=== PATIENT | female | born 1950 | race Caucasian/White ===

== ENCOUNTER → 2016-12-21 | Outpatient (CLI) | payer MEDICARE, BC, OTHER ==
[2016-12-21 18:11] LABS: ANION GAP 6 MEQ/L (8-16); BLOOD UREA NITROGEN 10 MG/DL (7-18); CALCIUM LEVEL 9.4 MG/DL (8.8-10.2); CARBON DIOXIDE LEVEL 32 MEQ/L (21-32); CHLORIDE LEVEL 99 MEQ/L (98-107); CREATININE FOR GFR 0.65 MG/DL (0.55-1.02); GLOMERULAR FILTRATION RATE > 60.0 (>45); GLUCOSE, FASTING 92 MG/DL (80-110); POTASSIUM SERUM 4.6 MEQ/L (3.5-5.1); SODIUM LEVEL 137 MEQ/L (136-145)
== END ==
LOC: M WUC 13:36
DX: J90 Pleural effusion, not elsewhere classified (principal); R60.9 Edema, unspecified; R06.00 Dyspnea, unspecified; I10 Essential (primary) hypertension

== ENCOUNTER → 2017-02-20 | Outpatient (REF) | payer MEDICARE, OTHER ==
[2017-02-20 21:32] LABS: ALBUMIN 4.1 GM/DL (3.2-5.2); ALBUMIN/GLOBULIN RATIO 1.28 (1.00-1.93); ALKALINE PHOSPHATASE 54 U/L (45-117); ALT/SGPT 21 U/L (12-78); ANION GAP 7 MEQ/L (8-16); AST/SGOT 15 U/L (15-37); BILIRUBIN,TOTAL 0.6 MG/DL (0.2-1.0); BLOOD UREA NITROGEN 10 MG/DL (7-18); CALCIUM LEVEL 9.3 MG/DL (8.8-10.2); CARBON DIOXIDE LEVEL 31 MEQ/L (21-32); CHLORIDE LEVEL 100 MEQ/L (98-107); CREATININE FOR GFR 0.83 MG/DL (0.55-1.02); GLOMERULAR FILTRATION RATE > 60.0 (>45); GLUCOSE, FASTING 86 MG/DL (80-110); POTASSIUM SERUM 4.4 MEQ/L (3.5-5.1); SODIUM LEVEL 138 MEQ/L (136-145); TOTAL PROTEIN 7.3 GM/DL (6.4-8.2)
[2017-02-23 00:07] LABS: Lyme Disease IgG/IgM Antibodie <0.91 ISR (0.00-0.90); Lyme Disease IgM Ab Quantitati <0.80 index (0.00-0.79)
== END ==
LOC: M LABDRWAD 20:57
PROVIDERS: ATTEND Physician Assistant
DX: R53.83 Other fatigue (principal)

== ENCOUNTER → 2017-03-20 | Outpatient (CLI) | payer MEDICARE, BC, OTHER ==
--- NOTE | 2017-03-20 16:48 | REP ---
Chest x-ray: Two views. History: Shortness of breath. Comparison chest radiographs are from December 21, 2016. Findings: The patient is status post thoracolumbar scoliosis surgery with stabilization screws, cables and rods. There are clips in the soft tissues of the right neck as well. The lungs are well inflated and free of infiltrate. Pleural angles are sharp. Pulmonary vasculature is not increased. Impression: Severe scoliosis status post stabilization surgery. Otherwise no acute disease. Signed by Robert Gonzalez MD 03/20/2017 05:01 P
== END ==
LOC: M ADAMS 15:30
PROVIDERS: ATTEND Physician Assistant
DX: R06.02 Shortness of breath (principal); M41.85 Other forms of scoliosis, thoracolumbar region; Z98.890 Other specified postprocedural states

== ENCOUNTER → 2021-03-08 | Outpatient (CLI) | payer MEDICARE, BC, OTHER ==
--- NOTE | 2021-03-08 13:14 | REP ---
INDICATION: HX CANCER, COUGH. COMPARISON: Two-view chest, 03/20/2017. TECHNIQUE: Upright PA and lateral images of the chest were obtained. FINDINGS: There is chronic blunting of the left costophrenic angle. The lungs are otherwise clear. The heart size is normal. There is no evidence of congestive heart failure. The upper abdominal bowel gas pattern is normal. There is severe S-shaped scoliosis of the thoracolumbar spine with multiple rods and screws as previously described. IMPRESSION: 1. No evidence of acute cardiopulmonary pathology. 2. Other findings as noted, unchanged. <Electronically signed by Raudel Ortez > 03/08/21 2028
== END ==
LOC: M PLAIMG 11:35
PROVIDERS: ATTEND Specialist
DX: Z85.9 Personal history of malignant neoplasm, unspecified (principal)